=== PATIENT | male | born 1985 | race Caucasian/White ===

== ENCOUNTER 2019-01-27 01:00 | Emergency (ER) | payer OTHER, SELFPAY ==
[2019-01-27 01:01] VITALS: BP 137/99; PULSE 95; RESP 16; TEMP 37; O2SAT 95; BMI 25.0
--- NOTE | 2019-01-27 01:12 | ED.VIS.GEN ---
History of Present Illness Chief Complaint: Laceration Narrative: Patient is a 33-year-old male who presents with a left hand laceration. He was using a knife to cut something when he slipped and cut between his left thumb and index finger. This occurred just before presentation here. He complains of some numbness and tingling of the distal thumb. He is uncertain of his last tetanus immunization. He is otherwise healthy. No weakness or loss of function. Past Medical History - Allergies and Home Meds Allergies/Adverse Reactions: Allergies No Known Allergies Allergy (Verified 01/27/19 01:07) Primary Care Physician: Aysha Clifton [Primary Care Provider] - Past Medical History: None Smoking Status: Current every day smoker Review of Systems All systems negative except as indicated General: Denies: Fever Cardiovascular: Denies: Chest pain Respiratory: Denies: Dyspnea Gastrointestinal: Denies: Nausea, Vomiting Skin: Denies: Rash Neurological: Denies: Headache Physical Exam Vital Signs/Narrative: Vital Signs Temp Pulse Resp BP Pulse Ox 01/27/19 01:01 98.6 F 95 16 137/99 H 95 Inital Vital Signs reviewed: Yes General: Well nourished Head: Normocephalic Eyes: EOMI ENT: Moist mucous membranes Neck: Supple Cardiovascular: Regular rate Respiratory: No distress Extremities: - - 4 cm laceration of the webspace between the left thumb and index finger he has active full range of motion of the hand normal flexion extension of the thumb normal opposition of the digits his sensation is intact to light touch he has brisk capillary refill no obvious tendon involvement on initial exam no arterial bleeding Skin: Normal color Neurological: Alert Psychological: Normal affect Diagnostic/Tx/Re-eval - Medical Decision Making Patient presented with a 4 cm laceration. His tetanus immunization was updated. The wound was locally anesthetized with 6 cc of 1% local lidocaine without epinephrine. Good anesthesia was achieved. Wound was cleansed and irrigated with sterile saline. 7 simple interrupted 4?0 nonabsorbable sutures were placed. Patient advised on local wound care. Topical antibiotic ointment and dressing was applied by nursing and the patient was discharged. ED Disposition - Plan for ED Patient: Disposition: Home or Assisted Living Diagnosis: Laceration of left hand Instructions: LACERATION, Hand Referrals: Aysha Clifton [Primary Care Provider] -
[2019-01-27] MEDS: Diphth,Pertuss(Acell),Tet Vac 0.5 ML Vial IM (01:26)
[2019-01-27 02:17] VITALS: PULSE 89; RESP 18; O2SAT 99
== END 2019-01-27 02:19 | disposition home or self-care (01) ==
PROVIDERS: Emergency Provider Emergency Medicine; Family Provider Family Medicine; PCP Family Medicine
DX: S61.412A Laceration without foreign body of left hand, initial encounter (principal); R20.2 Paresthesia of skin; W26.0XXA Contact with knife, initial encounter; Y93.9 Activity, unspecified; Y92.9 Unspecified place or not applicable; F17.200 Nicotine dependence, unspecified, uncomplicated
CPT/HCPCS: 12002; 90471; 90715; 99284